=== PATIENT | female | born 1990 | race Caucasian/White ===

== ENCOUNTER 2016-12-13 18:16 | Emergency (ER) | payer MEDICAID, OTHER ==
[2016-12-13] MEDS ORDERED: NORMAL SALINE 1,000 ML IV ONE (18:46)
[2016-12-13 18:59] LABS: Hemoglobin 14.4 gm/dL (12.5-16.0); Mean Cell Volume 90.5 fl (78-100); Mean Corpuscular Hemoglobin 32.6 pg (27-31); Mean Platelet Volume 9.5 fl (6.0-9.5); Neutrophil % 67.5 % (42-75.0); Platelet Count 306 K/mm3 (150-450); Red Blood Count 4.42 M/mm3 (4.2-5.4); Red Cell Distribution Width 12.1 % (11.5-14.0); White Blood Count 13.4 K/mm3 (4.0-10.5)
[2016-12-13 19:14] LABS: Albumin * 3.1 gm/dl (3.4-5.0); Anion Gap 14.6 mmol/L (6.8-13.8); Bilirubin, Total 0.3 mg/dL (0.0-1.1); Calcium * 8.6 mg/dL (7.9-10.9); Carbon Dioxide 22.9 mmol/L (24-32.6); Potassium 3.5 mmol/L (3.4-4.6); Total Protein 6.9 gm/dL (6.2-8.2)
[2016-12-13 19:33] LABS: Urine Bilirubin Negative (NEGATIVE); Urine Blood Negative /ul (NEGATIVE); Urine Ketone 15 mg/dL (NEGATIVE); Urine Nitrite Negative (NEGATIVE); Urine Protein Negative (NEGATIVE); Urine Specific Gravity 1.015 SP.GR. (1.005-1.010); Urine Urobilinogen Normal (NORMAL); Urine pH 7.5 pH (5.0-7.0)
--- NOTE | 2016-12-13 19:33 | ERNOTE ---
<Minor Encinas - Last Filed: 12/13/16 19:45> Dizziness ER Record Date of Service: 12/13/16 Presenting Symptoms: dizziness Time Seen by Provider: 12/13/16 18:39 Source: patient Exam Limitations: no limitations Immunizations: IMMUNIZATION HX Immunizations Up to Date Yes History of Influenza Vaccine No Hx Pneumococcal Vaccination No Allergies/Adverse Reactions: Allergies Allergy/AdvReac Type Severity Reaction Status Date / Time No Known Allergies Allergy Verified 12/13/16 18:29 Home Medications: HOME MEDICATIONS Pnv95/Iron Fum/Folic Acid [ Vitamins Tablet] 1 each PO DAILY 12/13/16 [ Last Taken Unknown] - History of Present Illness Narrative: Patient presents to the ED with vomiting and dizziness. She relates she is . She has not had an US yet. Fist visit is next week. Approx 6 weeks. No vaginal bleeding. She has been having vomiting for several days that she attributed to morning sickness but it has been worse over the last 2 days. No abdominal pain or vaginal bleeding. She has also been having spinning dizziness with head movement. She felt "water" in her left ear and that ear has been bothering her. No SAMAYOA. No focal N/T/W. No CP ro SOB. Timing and Duration: gradual onset Severity: currently: mild Associated Symptoms: Present: ear pain. Absent: hearing loss, headache, weakness, numbness Sense of movement: Present: spinning Modifying Factors - (Worsens): Reports: changing position, movement of head Prior Treament: Denies: recently seen Review of Systems - Review of Systems Constitutional: Absent: fever EYE: Absent: vision changes ENT: Present: See HPI Respiratory: Absent: shortness of breath Cardiology: Absent: chest pain Gastrointestinal/Abdominal: Present: vomiting. Absent: abdominal pain Genitourinary: Absent: dysuria Musculoskeletal: Absent: back pain Skin: Absent: rash Neurological: Absent: weakness - Patient's Past Medical History Patient History - Medical: Anxiety, Bipolar, Depression Patient History - Cardiac/Respiratory: No pertinent hx Patient History - Cancer: No Hx of Cancer Patient History - Surgical Procedures: Appendectomy Patient History - Other: None LMP (females 10-50): 3 months - Social History Living Situations: spouse Abuse History: No History of abuse Psych History: Hx of Anxiety, Hx of Depression, Hx of Bipolar Disorder Smoking Status: Current every day smoker Have you smoked in the past 12 months: Yes Do you dip or chew tobacco: No Patient requests Smoking Cessation Consult: No Initiate information on Smoking Cessation: No Alcohol Use: none Drug Use: marijuana - Immunizations Immunizations Up to Date: Yes Hx Pneumococcal Vaccination: No History of Influenza Vaccine: No Physical Exam - Physical Exam General Appearance: Present: alert, no apparent distress Eye Exam: Normal inspection: bilateral, PERRL: bilateral Ears, Nose, Throat: Present: normal ENT inspection, other - Left TM with fluids behind ear and mild erythema Neck: Present: normal inspection Respiratory: Present: no respiratory distress, normal breath sounds, no accessory muscle use, lungs clear Cardiovascular/Chest: Present: regular rate, rhythm Gastrointestinal/Abdominal: Present: normal bowel sounds, nontender, nondistended, soft. Absent: tenderness Back Exam: Absent: CVA tenderness (R), CVA tenderness (L) Extremity Exam: Present: normal inspection. 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 Absent: motor weakness Skin Exam: Present: normal color, warm/dry. Absent: skin rash ED Progress - Results and Orders Patient's Lab Results:: I have reviewed the patient's lab results. - Vital Signs Patient's Vital Signs:: I have reviewed the patient's vital signs. Vital Signs: Vital Signs 12/13/16 12/13/16 18:21 19:13 Temperature 36.6 C Pulse Rate 82 71 Respiratory 18 18 Rate Blood Pressure 123/61 109/66 O2 Sat by Pulse 98 98 Oximetry - Progress/Reassessment Chief Complaint: Dizziness - Transfer of Care Physician Sign Out: Minor Encinas Receiving Physician: Antwon Jeffery Additional Notes: Pending US Departure Clinical Impression: Vomiting, Dizzy, - Departure Disposition: Home self-care Condition: Good Instructions: Morning Sickness, [id number] Additional Instructions: Call OB physician tomorrow for follow up <Antwon Jeffery - Last Filed: 12/13/16 21:40> Dizziness ER Record Immunizations: IMMUNIZATION HX Immunizations Up to Date Yes History of Influenza Vaccine No Hx Pneumococcal Vaccination No ED Progress - Vital Signs Vital Signs: Vital Signs 12/13/16 12/13/16 12/13/16 18:21 19:13 21:16 Temperature 36.6 C Pulse Rate 82 71 68 Respiratory 18 18 18 Rate Blood Pressure 123/61 109/66 114/59 O2 Sat by Pulse 98 98 98 Oximetry - CT/Ultrasound CT/Ultrasound Narrative: IUP at 7 weeks 3 days. - Progress/Reassessment Progress Note-Subjective: 12/13/16 21:38 Feeling much improved. No N&V Plan - Plan Plan: Home Follow up with OB tomorrow
[2016-12-13 19:37] LABS: Urine Amorphous Sediment Many - 3+ (NONE-FEW); Urine Appearance Cloudy; Urine Bacteria 2+; Urine Color Yellow; Urine RBC None Seen /hpf (0-5); Urine WBC None Seen /hpf (0-5)
[2016-12-13] MEDS ORDERED: PROMETHAZINE HCL 25 MG/ML AMPUL IM ONE (21:05)
[2016-12-13] MEDS ORDERED: PROMETHAZINE HCL 25 MG/ML AMPUL ONE (21:07)
[2016-12-13] MEDS ORDERED: AZITHROMYCIN 250 MG TABLET ONE (21:47)
[2016-12-13] MEDS ORDERED: AZITHROMYCIN 250 MG TABLET PO ONE ×2 (21:48)
[2016-12-13 22:01] VITALS: BP 119/49
== END 2016-12-13 22:00 | disposition home or self-care (01) ==
LOC: ER 18:16
DX: R11.10 Vomiting, unspecified (principal); R42 Dizziness and giddiness; Z33.1 Pregnant state, incidental; Z3A.01 Less than 8 weeks gestation of pregnancy; Z72.0 Tobacco use